=== PATIENT | female | born 1955 | race Caucasian/White ===

== ENCOUNTER → 2017-11-29 | Outpatient (CLI) | payer BC | LOC: M.RAD 12:04 | DX: Z12.31 Encounter for screening mammogram for malignant neoplasm of breast (principal); M16.12 Unilateral primary osteoarthritis, left hip ==

== ENCOUNTER → 2018-03-13 | Outpatient (CLI) | payer BC, MEDICARE | LOC: M.RAD 15:52 | DX: M12.88 Other specific arthropathies, not elsewhere classified, other specified site (principal); G89.29 Other chronic pain; M25.551 Pain in right hip ==